=== PATIENT | female | born 1935 | race Caucasian/White ===

== ENCOUNTER 2018-06-28 10:15 | Emergency (ER) | payer OTHER ==
[~2018-06-28] VITALS: Ht 139.7 cm; Wt 40.8 kg
[~2018-06-28 10:15] MED LIST: ALPR0.5T8 PO; BUPR150T28 PO; LISI20TA PO; MELO15TA13 PO; SIMV10TA6 PO; TRAM50TA92 PO; [UNRECOGNIZED DRUG - CODE] PO
[2018-06-28 10:20] VITALS: BP_SYST 165
--- NOTE | 2018-06-28 10:20 | NUR ---
Patient to ER bed 4 to gown for evaluation. Side rails up.
--- NOTE | 2018-06-28 10:29 | NUR ---
ER at bedside examining patient.
--- NOTE | 2018-06-28 11:15 | NUR ---
Patient transported to radiology via gurney, accompanied by rad staff.
--- NOTE | 2018-06-28 11:30 | NUR ---
Returned from radiology, back to [facility].
--- NOTE | 2018-06-28 13:20 | NUR ---
Family at bedside. Dr. Berger at bedside to explain evaluation results. pt's latoyaer to transport pt back to facility after 1400 appt.
--- NOTE | 2018-06-28 14:52 | NUR ---
Patient given written and verbal discharge instructions and verbalizes understanding. ER MD discussed with patient the results and treatment provided. Patient in stable condition. ID arm band removed. Patient educated on pain management and to follow up with PMD. Pain Scale 3. Opportunity for questions provided and answered. Medication side effect fact sheet provided.
[2018-06-28 15:02] VITALS: BP_SYST 167
== END 2018-06-28 15:02 | disposition home or self-care (01) ==
LOC: SED 10:15
DX: S01.81XA Laceration without foreign body of other part of head, initial encounter (principal); F31.9 Bipolar disorder, unspecified; G30.9 Alzheimer's disease, unspecified; F02.80 Dementia in other diseases classified elsewhere, unspecified severity, without behavioral disturbance, psychotic disturbance, mood disturbance, and anxiety; I10 Essential (primary) hypertension; Z79.899 Other long term (current) drug therapy; W19.XXXA Unspecified fall, initial encounter; Y93.89 Activity, other specified; Y92.89 Other specified places as the place of occurrence of the external cause; Y99.8 Other external cause status
CPT/HCPCS: 70450-TC; 70480; 99284